=== PATIENT | male | born 1940 | race Two or more races ===

== ENCOUNTER 2018-07-02 22:51 | Emergency (ER) | payer OTHER ==
[~2018-07-02] VITALS: Ht 172.7 cm; Wt 77.1 kg
[2018-07-02 23:53] VITALS: BP 117/91
[2018-07-03] MEDS ORDERED: KETOROLAC TROMETH 60MG/2ML VIAL IM ONE (02:00)
== END 2018-07-03 03:51 | disposition home or self-care (01) ==
LOC: ER 22:54
DX: M65.4 Radial styloid tenosynovitis [de Quervain] (principal); Z88.1 Allergy status to other antibiotic agents
CPT/HCPCS: 73100; 96372; 99283; J1885

== ENCOUNTER 2023-09-26 19:45 | Emergency (ER) | payer OTHER ==
[~2023-09-26] VITALS: Ht 172.7 cm; Wt 62.0 kg
[2023-09-26 19:45] VITALS: BP 121/65; RESP 16; O2SAT 98
[2023-09-26 20:19] VITALS: PULSE 73
== END 2023-09-27 01:30 | disposition home or self-care (01) ==
LOC: ER 19:45
DX: S09.90XA Unspecified injury of head, initial encounter (principal); M25.511 Pain in right shoulder; R51.9 Headache, unspecified; R42 Dizziness and giddiness; Z88.1 Allergy status to other antibiotic agents; W01.0XXA Fall on same level from slipping, tripping and stumbling without subsequent striking against object, initial encounter; Y93.89 Activity, other specified; Y92.89 Other specified places as the place of occurrence of the external cause; Y99.8 Other external cause status
CPT/HCPCS: 70450; 72125; 72131; 73030; 93005